=== PATIENT | male | born 1940 | race Caucasian/White ===

== ENCOUNTER 2016-03-19 11:53 | Inpatient (IN) | payer MEDICARE ==
[~2016-03-19 11:53] MED LIST: ASPI1TAB69 PO
[2016-05-07] MEDS ORDERED: GLIM2TAB PO (13:00)
--- NOTE | 2016-05-13 17:33 | MH ---
cc: NEO TRINIDAD M.D., DONALD G. M.D. DERBENWICK, MARY J. M.D. DATE OF ADMISSION 05/14/2016 DATE OF ADMISSION 05/13/2016 ADMISSION DIAGNOSIS Lumbar spinal stenosis. HISTORY OF PRESENT ILLNESS This is a 75-year-old male who presented to us for evaluation of weakness in his lower extremities for the last eight months. He has previously undergone a C3-C4 anterior cervical fusion with plate placement for cervical myelopathy about a year ago and had improvement in his symptoms. He states over the last 5 months he has had sharp pain in the right anterior thigh and paresthesias in the moreno and medial calf. He denies any falls, although has had times where the right leg gives out on him. He denies any bowel or bladder incontinence. He states he has poor balance. He denies any back pain. Usually walking more than a block aggravates his symptoms. He has not had any physical therapy. He states that Motrin helps with his symptoms. PAST MEDICAL HISTORY Significant for: 1. 81 milligrams daily. 2. Glimepiride 2 mg daily. PAST MEDICAL HISTORY Significant for: 1. Diabetes mellitus. 2. Myelopathy at T5 / T6 and had surgery on 01/02/1986 with us. 3. Right foot surgery in 1999. 4. Three-vessel bypass in 2000. 5. Right foot surgery in 2003. 6. Hernia repair in 1990 and 2002. 7. Anterior cervical fusion April 04, 2015. ALLERGIES NO KNOWN DRUG ALLERGIES. FAMILY HISTORY His mother is at 99 years old of natural causes. Father is at 52 years old. He has a sister who is alive at 83 years old. SOCIAL HISTORY He is . He has three children. He smoked in the past and quit in 1984. He drinks alcohol 0-2 drinks daily. REVIEW OF SYSTEMS CONSTITUTIONAL: Denies any fever or chills. EARS, NOSE, AND THROAT: No pharyngitis or exudate or bloody drainage from nose. CARDIOVASCULAR: Denies any chest pain, palpitations. RESPIRATORY: No cough or shortness of breath. GASTROINTESTINAL: No dysuria or hematuria. MUSCULOSKELETAL: Positive for low back pain. SKIN: No rashes or pruritus. NEUROLOGICAL: No difficulty with speech or memory. GASTROINTESTINAL: No nausea or vomiting, abdominal pain. PSYCHIATRIC: No anxiety or depression symptoms. ENDOCRINE: No polyuria or polydipsia. HEMATOLOGIC: No bruising or bleeding tendencies. PHYSICAL EXAMINATION HEAD: Normocephalic, atraumatic. NECK: Supple. No carotid bruits heard on auscultation. LUNGS: Clear to auscultation bilaterally. HEART: Regular rate and rhythm. Normal S1-S2. ABDOMEN: Soft and nontender. Positive bowel sounds. SKIN: Reveals no cyanosis or erythema. MUSCULOSKELETAL: He has mild 4+/5 right EHL weakness compared to the left, otherwise 5/5 strength in the lower extremities. No assistive devices for ambulation. NEUROLOGICAL: Awake and alert, oriented. Cranial nerves II through XII appear grossly intact. Speech is fluent. Comprehension is good. Sensation is intact in the lower extremities. His reflexes are 2+ in the lower extremities. IMAGING Data reviewed, reviewed the MRI of the lumbar spine from February 21, 2016 which reveals moderate to severe L3-L4 spinal stenosis from a combination of facet and ligamentum flavum hypertrophy along with right synovial cyst. There is mild stenosis at the L2-L3, L4-L5 levels. IMPRESSION A 76-year-old male with neurogenic claudication symptoms with associated right L4 radiculopathy from a severe L3-L4 spinal stenosis. PLAN We have discussed treatment options with the patient which include L3-L4 decompressive laminectomy as well as continued conservative measures with physical therapy. The patient is requesting that we proceed with surgical intervention and this was discussed with him in detail. We have discussed the procedure as well as the risks, benefits, alternatives and recovery time. We have discussed the risks involved with surgery include but not limited to bleeding, infection, muscle weakness, voice hoarseness, difficulty swallowing, heart attack, stroke blood clots, scar tissue formation among others. The patient states that he understands the procedure as well as the risks involved and he is requesting that we proceed and he was therefore scheduled accordingly. DICTATED BY: Eber Pitts PA-C MD TRI Reddy/FLORECITA /4:58 PM /5:12 PM
[2016-05-14 06:13] VITALS: BP 173/94; PULSE 71; RESP 20; TEMP 98.2; O2SAT 95
[2016-05-14] MEDS ORDERED: METOPROLOL TARTRATE 25 MG TAB PO PRN (06:45)
[2016-05-14] MEDS ORDERED: VANCOMYCIN 1,000 MG/NS 250ML (for <70 kg) IV SCH ×2 (06:45)
[2016-05-14] MEDS ORDERED: INSULIN HUMAN REGULAR 1,000 UNITS/10 ML VIAL SQ PRN (06:45)
[2016-05-14] MEDS ORDERED: SODIUM CHLOR 0.9% 1000 ML INJ 1,000 ML IV SCH (07:00)
[2016-05-14] MEDS ORDERED: HYDROmorphone HCL PF 2 MG/ML VIAL ONE (07:12)
[2016-05-14] MEDS ORDERED: GELFOAM SIZE 100 ONE (07:44)
[2016-05-14] MEDS ORDERED: BUPIVACAINE/EPINEPHRINE 0.5% 50 ML VIAL ONE (07:44)
[2016-05-14] MEDS ORDERED: VANCOMYCIN HCL 1000 MG VIAL ONE (07:44)
[2016-05-14] MEDS ORDERED: THROMBIN (TOPICAL) 5,000 UNIT VIAL ONE (07:44)
[2016-05-14] MEDS ORDERED: methylPREDNISolone ACETATE 40 MG/ML VIAL ONE (07:44)
[2016-05-14] MEDS ORDERED: SODIUM CHLORID 0.9% 500 ML IV SCH (08:00)
[2016-05-14] MEDS ORDERED: LACTATED RINGER'S 1000 ML IV SCH (08:00)
[2016-05-14] MEDS ORDERED: FAMOTIDINE 20 MG/2 ML VIAL ONE (08:02)
[2016-05-14] MEDS ORDERED: MIDAZOLAM HCL 2 MG/2 ML VIAL ONE (08:02)
[2016-05-14] MEDS ORDERED: ACETAMINOPHEN 1000 MG/100 ML VIAL IV ONE (08:02)
[2016-05-14] MEDS ORDERED: HYDR-3535 PO (10:37)
--- NOTE | 2016-05-14 10:43 | PD.OP ---
cc: Domo Bernal MD, Mary, MD Operative Report Date of Surgery: May 14, 2016 Preoperative Diagnosis: L3-4 severe spinal stenosis from facet and ligamentum flavum hypertrophy along with a right synovial cyst; low back pain with neurogenic claudication Postoperative Diagnosis: Same Procedure: Lumbar L3-4 decompressive laminotomies and medial facetectomies and resection of synovial cyst; microsurgical technique Anesthesia: Gen. endotracheal by Hiro Silva Surgeon: Hermes De Los Santos M.D. Reporting Manager(s): Laura Corrales Operation and Findings: Following administration of general endotracheal anesthesia, patient received vancomycin 1 g intravenously. Sequential compression devices were placed for DVT prophylaxis. He was then turned in prone position on Matt frame and the Surjit table and all pressure points adequately padded. The lumbar region was then shaved and prepped with a Betadine and ChloraPrep. Sterile draping undertaken with Ioban. Midline incision overlying the L3-4 level was then made after infiltrating the skin with 0.5% Marcaine with epinephrine solution. The skin incision was made extending down through the fascia and then using the subperiosteal plane on the right side the muscular attachments to the spinous process and lamina were detached. Intraoperative fluoroscopy was used for level confirmation and further dissection undertaken using microtechnique with microscope magnification. The inferior portion of the L3 and superior portion of the L4 lamina were then drilled out and the underlying ligamentum flavum also removed. There was facet arthropathy noted as well as a right-sided synovial cyst in the medial portion of facet was also resected and the lateral recess decompressed. Epidural venous stasis which he with the bipolar cautery along with Gelfoam and thrombin and bone wax used at the laminotomy edges for hemostasis. The thecal sac was then gently retracted with a nerve root retractor and an extruded disc fragment was identified which was inferiorly migrated. Fragments were removed with pituitary forceps and the nerve root impingement along with thecal sac compression decompressed. The area was then copiously irrigated with vancomycin solution. The retractors removed and the muscle fascia proximal using 2-0 Vicryl interrupted stitches. 3-0 Vicryl subcuticular stitches were also placed in an interrupted fashion and planned skin closure was with Mastisol and Steri-Strips. A sterile dressing was then applied and the patient then turned in the supine position and extubated and taken to recovery room in stable condition. There were no intraoperative complications and all sponge and needle count was correct at the end of the procedure. Estimated blood loss about 20ml. Hermes De Los Santos MD May 14, 2016 10:43
--- NOTE | 2016-05-14 10:43 | RADRPT ---
EXAM DATE/TIME: 05/14/2016 08:55 [facility] COMPARISON: No previous studies available for comparison. INDICATIONS : Lumbar spine L3-4 laminectomy. OR. MEDICAL HISTORY : None. SURGICAL HISTORY : Fusion, cervical. ENCOUNTER: Initial ACUITY: 1 day PAIN SCORE: Non-responsive. LOCATION: Lumbar L3-4 FINDINGS: A single lateral view of the lumbar spine was performed. There is normal alignment of the vertebral bodies without evidence of subluxation. Vertebral body height and disc space height is maintained. T here is a localizer is posterior to the L3/L4 disc space. CONCLUSION: Localizing film with instrument at the level of L3/L4.. Theresa Moss MD on May 14, 2016 at 10:41 Board Certified Radiologist. This report was verified electronically.
[2016-05-14] MEDS ORDERED: ONDANSETRON HCL 4 MG/2 ML VIAL IV PUSH PRN (10:45)
[2016-05-14] MEDS ORDERED: ACETAMINOPHEN/HYDROcodone 325 MG/10 MG TAB PO PRN (10:45)
[2016-05-14] MEDS ORDERED: MORPHINE SULFATE 4 MG/ML INJ IV PUSH PRN (10:45)
[2016-05-14] MEDS ORDERED: DO NOT ADM ANY ANTICOAGULANT DRUGS XX PRN (10:45)
[2016-05-14] MEDS ORDERED: *RESP: ALBUTEROL 2.5 MG/3 ML NEB (PRN) PERIprocedural Use ONLY NEB ONE (10:57)
[2016-05-14] MEDS ORDERED: ePHEDrine/NS 50 MG/5 ML SYR IV ONE (12:00)
[2016-05-14] MEDS ORDERED: PROPOFOL 200 MG/20 ML AMP IV ONE (12:00)
[2016-05-14] MEDS ORDERED: fentaNYL CITRATE 250 MCG/5 ML AMP ONE (13:00)
[2016-05-14 13:13] VITALS: BP 135/75; PULSE 79; RESP 18; TEMP 96.9; O2SAT 95
[2016-05-14] MEDS ORDERED: LACTATED RINGER'S 1000 ML INJ 1,000 ML IV ONE (13:41)
[2016-05-14] MEDS ORDERED: ONDANSETRON HCL 4 MG/2 ML VIAL IV PUSH ONE (13:41)
[2016-05-14] MEDS ORDERED: NEOSTIGMINE 3 MG/3 ML SYR IV ONE (13:41)
[2016-05-14] MEDS ORDERED: ACETAMINOPHEN/HYDROcodone 325 MG/10 MG TAB PO ONE (14:15)
== END 2016-05-14 13:42 | disposition home or self-care (01) | DRG 520 ==
LOC: HSDI 05-14 06:01
PROVIDERS: ADMIT Neurological Surgery; ATTEND Neurological Surgery
PROC: 0SB20ZZ Excision of Lumbar Vertebral Disc, Open Approach (ICD-10-PCS; 2016-05-14)
PROC: 0SB00ZZ Excision of Lumbar Vertebral Joint, Open Approach (ICD-10-PCS; principal; 2016-05-14 08:15)
DX: M48.06 Spinal stenosis, lumbar region (principal); E11.9 Type 2 diabetes mellitus without complications; M71.30 Other bursal cyst, unspecified site; M54.16 Radiculopathy, lumbar region; I25.10 Atherosclerotic heart disease of native coronary artery without angina pectoris; E78.5 Hyperlipidemia, unspecified; Z79.84 Long term (current) use of oral hypoglycemic drugs; Z95.1 Presence of aortocoronary bypass graft; Z87.891 Personal history of nicotine dependence; Z98.1 Arthrodesis status
CPT/HCPCS: 72020; 76000; 86850; 86900; 86901; 94664; J0131; J1030; J1170; J2250; J2405; J2710; J3010; J3370; J7050; J7120; J7613

== ENCOUNTER → 2016-05-07 | Outpatient (CLI) | payer MEDICARE ==
[~2016-05-07] MED LIST changes: +GLIM2TAB PO; +HYDR-3535 PO
== END ==
LOC: CPRE 12:26
PROVIDERS: ATTEND Neurological Surgery
DX: Z01.818 Encounter for other preprocedural examination (principal); M48.06 Spinal stenosis, lumbar region; M71.30 Other bursal cyst, unspecified site